=== PATIENT | female | born 1950 | race Caucasian/White ===

== ENCOUNTER 2016-06-15 05:36 | Inpatient (IN) ==
[2016-06-10 11:03] LABS: Basophils # 0.1 10*3/uL (0.0-0.2); Eosinophils # 0.1 10*3/uL (0.0-0.87); Eosinophils % 2.1 % (0.00-10.9); Hematocrit 35.4 VOL% (35.7-47.0); Hemoglobin 11.4 GM/DL (12.0-16.0); Immature Granulocytes % 0.4 %; Immature Granulocytes Absolute 0.02 #; Lymphocytes # 1.1 10*3/uL (1.4-4.0); Lymphocytes % 22.1 % (21.3-54.2); Mean Corpuscular HGB Conc 32.2 GM/DL (32-36); Mean Corpuscular Hemoglobin 28 PG (27-34); Mean Corpuscular Volume 86.1 FL (87-102); Mean Platelet Volume 9.5 FL (9.6-12.0); Monocytes # 0.4 10*3/uL (0.11-0.8); Monocytes % 7.2 % (1.7-12.7); Neutrophils # 3.5 10*3/uL (1.4-7.4); Neutrophils % 67.2 % (38.7-73.9); Platelet Count 285 T/CUMM (130-400); Red Blood Count 4.11 MC/CUMM (3.8-5.5); Red Cell Distribution Width 14.7 % (9.3-17.3); White Blood Count 5.2 T/CUMM (4-12)
[2016-06-10 11:13] LABS: Apearance,Urine CLEAR (Clear); Bacteria,Urine Occasional /HPF (Few); Bilirubin,Urine Negative (Negative); Blood, Urine Moderate mg/dL (Negative); Glucose,Urine (UA) Negative (Negative); Ketones,Urine Negative (Negative); Mucus,Urine Occasional /LPF (Occasional); Nitrite,Urine Negative (Negative); Protein,Urine Negative; RBC,Urine 6 /HPF (0-4); Squamous Epithelial Cell,Urine Occasional /HPF (0-10); Urine Color Yellow (Yellow); Urine Specific Gravity 1.013 (1.001-1.035); Urine Urobilinogen < 2.0 EU/DL (0.2-1.0); WBC,Urine 1 /HPF (0-6)
[2016-06-10 11:15] LABS: PT Patient Result 10.2 SECS
[2016-06-10 11:46] LABS: Albumin 3.6 G/DL (3.4-5.0); Bilirubin,Total 0.7 MG/DL (0.2-1.0); Calcium 8.5 MG/DL (8.5-10.1); Osmolality,Calculated 277.5 MOS/KG (273-304); Potassium 4.8 MMOL/L (3.5-5.1); Total Protein 6.6 G/DL (6.4-8.3)
--- NOTE | 2016-06-10 12:18 | EKG Report ---
Stationary ECG Study [facility] Test Date: 06/10/2016 12:17 PM Pat Name: RIRI ARCOS Department: Room: Gender: F [employer]ist: [birth year] : 1950 Requested by: Adarsh Bishop Order Number: [id number] Reading MD: JONATHON MCKEON Intervals [place] Rate: 68 P: 48 [place]: 151 QRS: 45 QRSD: 93 T: 45 QT: 420 QTc: 437 Interpretive Statements SINUS RHYTHM WITH OCCASIONAL SUPRAVENTRICULAR PREMATURE COMPLEXES LOW QRS VOLTAGE IN CHEST LEADS Electronically Signed On 06-10-16 12:51:25 CDT by JONATHON MCKEON [email or web address]
--- NOTE | 2016-06-10 13:20 | XRay Report ---
XR chest 2V Indication: Preop respiratory evaluation. Chest 2 views: Comparison 03/24/2015. Normal heart size and mediastinal contours are stable. Large hiatal hernia is present. Lungs are generally clear. Pleural spaces are clear. Impression: Large hilar hernia. No acute cardiopulmonary disease. PROCEDURE INTERPRETED AT [facility] DEPARTMENT OF RADIOLOGY Final Report Signed by: Scooter Yanes M.D.
[2016-06-15] MEDS ORDERED: ceFAZolin 1,000 MG VIAL ONE (05:44)
[2016-06-15] MEDS ORDERED: VANCOMYCIN 1,000 MG VIAL ONE (05:44)
[2016-06-15] MEDS ORDERED: ONDANSETRON 4 MG TABLET ONE (05:45)
[2016-06-15] MEDS ORDERED: SODIUM CHLORIDE 0.9% 100 ML IV ONE (05:45)
[2016-06-15] MEDS ORDERED: FAMOTIDINE 20 MG TABLET ONE (05:45)
[2016-06-15] MEDS ORDERED: LORazepam 1 MG TABLET ONE (05:45)
[2016-06-15] MEDS ORDERED: LORazepam 1 MG TABLET PO ONE (06:00)
[2016-06-15] MEDS ORDERED: ONDANSETRON 4 MG TABLET PO ONE (06:00)
[2016-06-15] MEDS ORDERED: FAMOTIDINE 20 MG TABLET PO ONE (06:00)
[2016-06-15] MEDS ORDERED: VANCOMYCIN INJ 1,000 MG in SODIUM CHLORIDE 0.9% 250 ML IV ONE (06:00)
[2016-06-15] MEDS ORDERED: LACTATED RINGERS 1,000 ML IV SCH (06:30)
[2016-06-15] MEDS ORDERED: MORPHINE 10 MG/1 ML VIAL ONE (06:34)
[2016-06-15] MEDS ORDERED: EPINEPHrine 1 MG/ML VIAL ONE (06:34)
[2016-06-15] MEDS ORDERED: BUPIVACAINE 0.5% 50 ML VIAL ONE (06:34)
[2016-06-15] MEDS ORDERED: methylPREDNISolone SOD SUC 125 MG/2 ML VIAL ONE (06:34)
[2016-06-15] MEDS ORDERED: TRANEXAMIC ACID 1,000 MG/10 ML VIAL IV ONE (06:55)
--- NOTE | 2016-06-15 06:56 | History and Physical Update ---
History and Physical Update - History and Physical H&P was reviewed, the patient examined and there: are no changes in the patients condition since last H&P was completed. - Dictation Physical: refer to scanned H&P
[2016-06-15] MEDS ORDERED: LIDOCAINE 2% 5 ML VIAL ONE (07:00)
[2016-06-15] MEDS ORDERED: PHENYLEPHRINE 1 MG/10 ML SYRINGE IV ONE (07:00)
[2016-06-15] MEDS ORDERED: PROPOFOL 200 MG/20 ML VIAL IV ONE (07:00)
[2016-06-15] MEDS ORDERED: ROPIVACAINE 0.5% 30 ML VIAL ONE (07:46)
[2016-06-15] MEDS ORDERED: ONDANSETRON 4 MG/2 ML VIAL IV PRN (08:47)
[2016-06-15] MEDS ORDERED: MAGNESIUM HYDROXIDE SUSP 30 ML UDCUP PO PRN (08:47)
[2016-06-15] MEDS ORDERED: diphenhydrAMINE CAP 25 MG CAPSULE PO PRN (08:47)
[2016-06-15] MEDS ORDERED: NALOXONE 0.4 MG/ML VIAL IV PRN (08:47)
[2016-06-15] MEDS ORDERED: fentaNYL 25 MCG/HR PATCH TRANSDERM SCH (09:00)
[2016-06-15] MEDS ORDERED: HYDROmorphone PCA 30 MG/30 ML SYRINGE IV SCH (09:00)
[2016-06-15] MEDS ORDERED: busPIRone 15 MG TABLET PO SCH (09:00)
--- NOTE | 2016-06-15 10:07 | XRay Report ---
Exam: XR knee 2V RT Date: 06/15/2016 8:49 AM Comparison: 06/15/2016 Indication: Postop Technique:[Portable AP and lateral right knee] Findings: Recent satisfactory right total knee replacement with postoperative findings. Impression: Recent satisfactory right total knee replacement. PROCEDURE INTERPRETED AT [facility] DEPARTMENT OF RADIOLOGY Final Report Signed by: Dr. Mila Sylvester
--- NOTE | 2016-06-15 10:25 | Anesthesia Post-Op ---
Anesthesia Post OP - Post Ansesthetic Evaluation Patient seen in post op: Yes Resp: within normal limits CV: within normal limits Mental: within normal limits Temp: within normal limits [id number]: within normal limits Nausea and Vomiting: within normal limits Pain: within normal limits
[2016-06-15] MEDS ORDERED: ePHEDrine 50 MG/ML AMP ONE (10:36)
[2016-06-15] MEDS ORDERED: MIDAZOLAM 2 MG/2 ML VIAL ONE (10:36)
[2016-06-15] MEDS ORDERED: LACTATED RINGERS 1,000 ML IV ONE (10:36)
[2016-06-15] MEDS ORDERED: ACETAMINOPHEN 1,000 MG/100 ML VIAL IV ONE (10:36)
[2016-06-15] MEDS ORDERED: SODIUM CHLORIDE 0.9% 200 ML IV ONE (10:36)
[2016-06-15] MEDS: GABAPENTIN 400 MG CAPSULE PO SCH ×4 (11:56→20:51)
[2016-06-15] MEDS: ceFAZolin 2,000 MG in PREMIX 1 EACH IV SCH ×2 (12:26→20:51)
[2016-06-15] MEDS: KETOROLAC 30 MG/1 ML VIAL IV SCH ×3 (12:26→22:50)
[2016-06-15] MEDS: LISINOPRIL 10 MG TABLET PO SCH (13:24)
[2016-06-15] MEDS: DOCUSATE SODIUM 100 MG CAPSULE PO SCH ×2 (13:24→20:51)
[2016-06-15] MEDS: LEVOTHYROXINE 75 MCG TABLET PO SCH (13:34)
[2016-06-15] MEDS: POTASSIUM CHLORIDE 10 MEQ TABLET PO SCH (13:34)
[2016-06-15] MEDS: PANTOPRAZOLE 40 MG TABLET PO SCH (13:34)
[2016-06-15] MEDS: LOVASTATIN 20 MG TABLET PO SCH (13:34)
[2016-06-15] MEDS: ACETAMINOPHEN 500 MG TABLET PO SCH ×2 (13:34→19:21)
[2016-06-15] MEDS: SODIUM CHLORIDE 0.9% 1,000 ML IV SCH ×2 (16:56→19:21)
--- NOTE | 2016-06-15 17:06 | Orthopedic Progress Note ---
Assessment and Plan (1) Status post total right knee replacement using cement Status: Acute Assessment and plan: Routine postop antibiotics DVT prophylaxis Begin therapy twice daily tomorrow Plan to discharge with home health and home PT later in the week Current Visit: Yes Orthopedics - Subjective Interval history: Patient is sitting in the bedside chair. She is awake she is comfortable. Her pain is well controlled. On exam her dressings clean and dry she is neurovascularly intact in the right foot. Exam - Constitutional Vitals: Period Temp Pulse Resp BP Sys/Rowell Pulse Ox Last 24 Hr 96.4 F-97.8 F 53-89 16-20 98-135/57-84 94-100 Results - Labs CBC & BMP: 06/10/16 10:56 06/10/16 10:56
[2016-06-15] MEDS: rOPINIRole 0.25 MG TABLET PO SCH (20:51)
[2016-06-16] MEDS: ACETAMINOPHEN 500 MG TABLET PO SCH ×2 (02:10→07:40)
[2016-06-16] MEDS: ENOXAPARIN 40 MG/0.4 ML SYRINGE SUBCUT SCH (03:28)
[2016-06-16] MEDS: KETOROLAC 30 MG/1 ML VIAL IV SCH (04:20)
[2016-06-16] MEDS: SODIUM CHLORIDE 0.9% 1,000 ML IV SCH (05:30)
[2016-06-16 06:59] LABS: Basophils % 0.3 % (0.0-0.8); Hematocrit 28.2 VOL% (35.7-47.0); Hemoglobin 9.1 GM/DL (12.0-16.0); Immature Granulocytes % 0.4 %; Immature Granulocytes Absolute 0.04 #; Lymphocytes # 0.6 10*3/uL (1.4-4.0); Lymphocytes % 5.5 % (21.3-54.2); Mean Corpuscular HGB Conc 32.3 GM/DL (32-36); Mean Corpuscular Hemoglobin 28 PG (27-34); Mean Corpuscular Volume 87.6 FL (87-102); Mean Platelet Volume 10.6 FL (9.6-12.0); Monocytes # 0.7 10*3/uL (0.11-0.8); Monocytes % 6.4 % (1.7-12.7); Neutrophils # 9.9 10*3/uL (1.4-7.4); Neutrophils % 87.4 % (38.7-73.9); Platelet Count 188 T/CUMM (130-400); Red Blood Count 3.22 MC/CUMM (3.8-5.5); Red Cell Distribution Width 14.8 % (9.3-17.3); White Blood Count 11.4 T/CUMM (4-12)
--- NOTE | 2016-06-16 07:11 | Orthopedic Progress Note ---
Assessment and Plan (1) Status post total right knee replacement using cement Status: Acute Assessment and plan: DVT prophylaxis Out of bed with therapy twice daily Plan to discharge with home health and home PT Wednesday or Current Visit: Yes Orthopedics - Subjective Interval history: Patient is comfortable this morning. She states she is ready get up and going with physical therapy. On exam her dressings clean and dry, she is neurovascularly intact. Exam - Constitutional Vitals: Period Temp Pulse Resp BP Sys/Rowell Pulse Ox Last 24 Hr 96.4 F-99.2 F 53-96 16-20 98-156/57-85 93-100 Results - Labs CBC & BMP: 06/16/16 06:08 06/16/16 06:08
[2016-06-16 07:39] LABS: Calcium 8.4 MG/DL (8.5-10.1); Osmolality,Calculated 280.4 MOS/KG (273-304); Potassium 5.5 MMOL/L (3.5-5.1)
[2016-06-16] MEDS: LEVOTHYROXINE 75 MCG TABLET PO SCH (07:40)
[2016-06-16] MEDS ORDERED: ACETAMINOPHEN 325 MG TABLET PO PRN (08:48)
[2016-06-16] MEDS: DOCUSATE SODIUM 100 MG CAPSULE PO SCH ×2 (09:15→20:10)
[2016-06-16] MEDS: LOVASTATIN 20 MG TABLET PO SCH (09:15)
[2016-06-16] MEDS: GABAPENTIN 400 MG CAPSULE PO SCH ×4 (09:15→20:10)
[2016-06-16] MEDS: PANTOPRAZOLE 40 MG TABLET PO SCH (09:15)
[2016-06-16] MEDS: LISINOPRIL 10 MG TABLET PO SCH (09:15)
[2016-06-16] MEDS: POTASSIUM CHLORIDE 10 MEQ TABLET PO SCH (09:16)
--- NOTE | 2016-06-16 10:45 | Pathology Report from [facility] ---
ACCESSION # : [id number] PATIENT NAME : Becki Arcos ORDERING DR : Adarsh Bishop MD CLINICAL HX: RT knee osteoarthritis POST-OP DX: Same SPECIMEN INFO: RT knee bone & tissue GROSS DESCRIPTION: Received in formalin labeled "BECKI ARCOS" are multiple fragments of bone, cartilage and adipose tissue measuring collectively 14.6 x 1.6 5 cm. The articular surface focally degenerative with subchondral eburnation measuring up to 3 cm and marked cartilage lipping noted. Qa Developer sections are submitted in one cassette. DIAGNOSIS FOR BECKI ARCOS: RIGHT KNEE BONE AND TISSUE: Gross and microscopic findings consistent with osteoarthritis. SERVICE DATE: 06/15/2016 REPORT DATE: 06/16/2016 PATHOLOGIST: Loly Galeas III, M.D. MTDD
[2016-06-16] MEDS: CELECOXIB 200 MG CAPSULE PO SCH (13:48)
[2016-06-16] MEDS: rOPINIRole 0.25 MG TABLET PO SCH (20:10)
[2016-06-17] MEDS: ENOXAPARIN 40 MG/0.4 ML SYRINGE SUBCUT SCH (03:11)
[2016-06-17] MEDS: LEVOTHYROXINE 75 MCG TABLET PO SCH (06:10)
[2016-06-17 06:35] LABS: Basophils % 0.4 % (0.0-0.8); Eosinophils # 0.4 10*3/uL (0.0-0.87); Eosinophils % 4.2 % (0.00-10.9); Hematocrit 26.7 VOL% (35.7-47.0); Hemoglobin 8.7 GM/DL (12.0-16.0); Immature Granulocytes % 0.7 %; Immature Granulocytes Absolute 0.07 #; Lymphocytes # 1.1 10*3/uL (1.4-4.0); Lymphocytes % 11.4 % (21.3-54.2); Mean Corpuscular HGB Conc 32.6 GM/DL (32-36); Mean Corpuscular Hemoglobin 28 PG (27-34); Mean Corpuscular Volume 85.9 FL (87-102); Mean Platelet Volume 10.5 FL (9.6-12.0); Monocytes # 0.8 10*3/uL (0.11-0.8); Monocytes % 8.3 % (1.7-12.7); Platelet Count 186 T/CUMM (130-400); Red Blood Count 3.11 MC/CUMM (3.8-5.5); Red Cell Distribution Width 15.2 % (9.3-17.3); White Blood Count 9.4 T/CUMM (4-12)
--- NOTE | 2016-06-17 07:38 | Discharge Summary ---
Hospital Course - Hospital Course Hospital Course: 66-year-old female admitted hospital following total knee arthroplasty. She tolerated the procedure well and was transferred to the floor in stable condition postoperatively. She received routine antibiotics and thromboprophylaxis. She did well with therapy and was subsequently discharged when she was walking safely. At the time of discharge, her wound was clean and dry and she is neurovascularly intact in the right lower extremity. Diagnosis - Discharge Diagnosis (1) Status post total right knee replacement using cement Status: Acute Specialty Discharge - Follow Up or Referrals Follow up with: Adarsh Bishop MD [Physician] - Discharge Plan - Discharge Data Disposition: Home Health Service Condition at Discharge: Stable Discharge Diet: advance to your usual diet Activity: ambulate only with your walker Hygiene: may shower Weight Bearing at Discharge: weight bear as tolerated Driving: not until seen by doctor Contact your physician if you experience:: fever over 101, Difficulty voiding, Redness or swelling, Nausea/Vomiting, Shortness of breath, Bleeding, pain uncontrolled by pain medications Wound / Dressing Care Instructions: daily dressing change. OK to shower. no tub soaks. mary out 06/29/16 - Discharge Medications New Aspirin EC Tab 325 mg PO DAILY #30 tablet Continue Gabapentin 400 mg PO QID Levothyroxine Sodium 75 mcg PO DAILY Lovastatin 20 mg PO DAILY rOPINIRole [Requip] 0.5 mg PO BEDTIME Omeprazole 20 mg PO DAILY Lisinopril 10 mg PO DAILY #30 tablet Potassium Chloride 10 meq PO DAILY fentaNYL [Fentanyl 25 mcg/hr Patch] 1 patch TRANSDERM Q3DAY Changed HYDROcodone/ACETAMIN 10-325 [Rock 10-325] 1 - 2 tablet PO Q4H PRN #60 PRN Reason: Pain - Follow Up or Referral Follow Up: Adarsh Bishop MD [Physician] - (3 weeks ) - Forms/Instructions Instructions: Total Knee Replacement (DC) Additional Discharge Instructions: WBAT, total knee protocol Exam - Constitutional Vitals: Period Temp Pulse Resp BP Sys/Rowell Pulse Ox Last 24 Hr 97.6 F-100 F 86-96 18-20 88-150/50-85 93-100 Discharge Results Procedures and tests throughout hospitalization: Pending Orders 06/18/16 04:00 Comp Blood Count Auto Diff IN AM Labs on day of discharge: Labs from last 24 hours 06/17/16 06/16/16 06:06 06:08 WBC 9.4 RBC 3.11 L Hgb 8.7 L Hct 26.7 L MCV 85.9 L MCH 28 MCHC 32.6 RDW 15.2 Plt Count 186 MPV 10.5 Neut % (Auto) 75.0 H Lymph % (Auto) 11.[address] % (Auto) 8.3 Eos % (Auto) 4.2 Baso % (Auto) 0.4 Neut # (Auto) 7.0 Lymph # (Auto) 1.[address] # (Auto) 0.8 Eos # (Auto) 0.4 Baso # (Auto) 0.0 Immature Gran % 0.7 Nucleated RBC % 0.0 Immature Gran # 0.07 Nucleated RBCs # 0.00 Sodium 140 Potassium 5.5 H Chloride 108 H Carbon Dioxide 24 Anion Gap 13.5 BUN 16 Creatinine 1.00 GFR Calculation 68 BUN/Creatinine Ratio 16.00 Glucose 124 H Calculated Osmolality 280.4 Calcium 8.4 L DS: Provider Date of admission: 06/15/16 05:36 Primary care physician: Mikki Tucker NP Attending physician on admission: Adarsh Bishop MD Consults: 06/15/16 08:47 Consult to Case Mgmt/Social Srvs [CONS] Routine Reason for Case Mgmt/Social Srvs: Rehab Home Health Equipment Consult Comment: Bedside Commode, deliver to rm 320 before D/C; Pt 5ft 6.5in 206lbs. Consult to Occupational Therapy [CONS] Routine Reason for Occupational Therapy: Evaluate and Treat Consult Comment: ADL's Consult to Physical Therapy [CONS] Routine Reason for Physical Therapy: Evaluate and Treat Gait Training Start Therapy: Today Consult Comment: wbat Discharging clinician: Adarsh Bishop MD
[2016-06-17] MEDS: POTASSIUM CHLORIDE 10 MEQ TABLET PO SCH (10:17)
[2016-06-17] MEDS: DOCUSATE SODIUM 100 MG CAPSULE PO SCH (10:18)
[2016-06-17] MEDS: GABAPENTIN 400 MG CAPSULE PO SCH (10:18)
[2016-06-17] MEDS: CELECOXIB 200 MG CAPSULE PO SCH (10:19)
[2016-06-17] MEDS: LOVASTATIN 20 MG TABLET PO SCH (10:20)
[2016-06-17] MEDS: PANTOPRAZOLE 40 MG TABLET PO SCH (10:20)
[2016-06-17] MEDS: LISINOPRIL 10 MG TABLET PO SCH (10:21)
[2016-06-17 16:32] VITALS: BP 115/59
== END 2016-06-17 16:40 | disposition home health service (06) | DRG 470 ==
LOC: N.SDSINP 05:36 → N.3E 10:00
PROVIDERS: ADMIT Orthopaedic Surgery; ATTEND Orthopaedic Surgery

== ENCOUNTER 2019-04-02 15:54 | Observation (INO) ==
[2019-04-02] MEDS ORDERED: METOCLOPRAMIDE 10 MG/2 ML VIAL IV STA (16:41)
[2019-04-02] MEDS ORDERED: PANTOPRAZOLE 40 MG VIAL IV STA (16:41)
[2019-04-02] MEDS ORDERED: ONDANSETRON 4 MG/2 ML VIAL IV STA (16:41)
[2019-04-02] MEDS ORDERED: SODIUM CHLORIDE 0.9% 1,000 ML IV STA (16:41)
[2019-04-02] MEDS ORDERED: DICYCLOMINE 20 MG/2 ML AMP IM ONE (16:41)
[2019-04-02 18:19] LABS: Apearance,Urine Slightly Hazy (Clear); Bilirubin,Urine Negative (Negative); Blood, Urine Large mg/dL (Negative); Glucose,Urine (UA) Negative (Negative); Ketones,Urine Negative (Negative); Mucus,Urine Few /LPF (Occasional); Nitrite,Urine Negative (Negative); Protein,Urine 30 MG/DL; RBC,Urine 10 /HPF (0-4); Squamous Epithelial Cell,Urine Occasional /HPF (0-10); Uric Acid Crystals,Urine Few /HPF (<1); Urine Color Yellow (Yellow); WBC,Urine 2 /HPF (0-6)
[2019-04-02 19:09] LABS: Basophils # 0.1 10*3/uL (0.0-0.2); Basophils % 0.5 % (0.0-0.8); Eosinophils % 0.2 % (0.00-10.9); Hemoglobin 13.6 GM/DL (12.0-16.0); Immature Granulocytes % 0.2 %; Immature Granulocytes Absolute 0.02 #; Lymphocytes # 0.9 10*3/uL (1.4-4.0); Lymphocytes % 7.6 % (21.3-54.2); Mean Corpuscular HGB Conc 31.6 GM/DL (32-36); Mean Platelet Volume 9.9 FL (9.6-12.0); Neutrophils % 86.5 % (38.7-73.9); Platelet Count 329 T/CUMM (130-400); Red Blood Count 5.06 MC/CUMM (3.8-5.5); Red Cell Distribution Width 13.8 % (9.3-17.3); White Blood Count 11.8 T/CUMM (4-12)
[2019-04-02 19:30] LABS: Alanine Aminotransferase 12 U/L (13-56); Albumin 3.9 G/DL (3.4-5.0); Alkaline Phosphatase 81 U/L (45-117); Amylase 37 U/L (25-115); Aspartate Amino Transferase 15 U/L (0-37); Blood Urea Nitrogen 16 MG/DL (7-18); Calcium 9.1 MG/DL (8.5-10.1); Estimated Glom Filtration Rate 86 ML/MIN; Glucose 94 MG/DL (74-106); Osmolality,Calculated 270.1 MOS/KG (273-304); Total Protein 7.3 G/DL (6.4-8.3); Troponin I < 0.015 NG/ML (0.00-0.045)
[2019-04-02] MEDS ORDERED: PROMETHAZINE 25 MG/1 ML VIAL IM STA (20:13)
[2019-04-02] MEDS ORDERED: ACETAMINOPHEN 325 MG TABLET PO PRN (20:41)
[2019-04-02] MEDS ORDERED: ONDANSETRON 4 MG/2 ML VIAL IV PRN (20:41)
[2019-04-02] MEDS ORDERED: PROMETHAZINE 25 MG/1 ML VIAL IM PRN (20:41)
[2019-04-02] MEDS: DICYCLOMINE 10 MG CAPSULE PO SCH (22:50)
[2019-04-02] MEDS: rOPINIRole 1 MG TABLET PO SCH (22:50)
[2019-04-02] MEDS: POTASSIUM CHLORIDE 10 MEQ TABLET PO SCH (22:50)
[2019-04-02] MEDS: SIMVASTATIN 10 MG TABLET PO SCH (22:50)
[2019-04-02] MEDS: FUROSEMIDE 20 MG TABLET PO SCH (22:51)
[2019-04-03 06:26] LABS: Basophils % 0.4 % (0.0-0.8); Eosinophils % 0.3 % (0.00-10.9); Hematocrit 37.2 VOL% (35.7-47.0); Hemoglobin 11.9 GM/DL (12.0-16.0); Immature Granulocytes % 0.2 %; Immature Granulocytes Absolute 0.02 #; Lymphocytes # 0.9 10*3/uL (1.4-4.0); Lymphocytes % 9.8 % (21.3-54.2); Mean Corpuscular Volume 83.2 FL (87-102); Mean Platelet Volume 10.1 FL (9.6-12.0); Monocytes % 7.2 % (1.7-12.7); Neutrophils % 82.1 % (38.7-73.9); Platelet Count 296 T/CUMM (130-400); Red Blood Count 4.47 MC/CUMM (3.8-5.5); Red Cell Distribution Width 13.9 % (9.3-17.3)
[2019-04-03] MEDS: LEVOTHYROXINE 75 MCG TABLET PO SCH (06:36)
[2019-04-03 06:46] LABS: Albumin 3.1 G/DL (3.4-5.0); Bilirubin,Total 0.7 MG/DL (0.2-1.0); Calcium 8.2 MG/DL (8.5-10.1); Osmolality,Calculated 271.1 MOS/KG (273-304); Total Protein 6.2 G/DL (6.4-8.3)
[2019-04-03] MEDS: lisinopriL 10 MG TABLET PO SCH (10:59)
[2019-04-03] MEDS: POTASSIUM CHLORIDE 10 MEQ TABLET PO SCH ×2 (10:59→22:34)
[2019-04-03] MEDS: CALCIUM (CARBONATE)/VITAMIN D 600 MG-400 UNIT TABLET PO SCH (11:00)
[2019-04-03] MEDS: DICYCLOMINE 10 MG CAPSULE PO SCH ×4 (11:00→22:35)
[2019-04-03] MEDS: FERROUS SULFATE 325 MG TABLET PO SCH (11:00)
[2019-04-03] MEDS: FUROSEMIDE 20 MG TABLET PO SCH ×2 (11:00→22:33)
[2019-04-03] MEDS: FLUoxetine 20 MG CAPSULE PO SCH (11:00)
[2019-04-03] MEDS: PANTOPRAZOLE 40 MG TABLET PO SCH (11:00)
[2019-04-03] MEDS: rOPINIRole 1 MG TABLET PO SCH (22:33)
[2019-04-03] MEDS: SIMVASTATIN 10 MG TABLET PO SCH (22:33)
[2019-04-04] MEDS: LEVOTHYROXINE 75 MCG TABLET PO SCH (07:26)
[2019-04-04] MEDS: FUROSEMIDE 20 MG TABLET PO SCH ×2 (08:57→21:07)
[2019-04-04] MEDS: FLUoxetine 20 MG CAPSULE PO SCH (08:57)
[2019-04-04] MEDS: lisinopriL 10 MG TABLET PO SCH (08:57)
[2019-04-04] MEDS: DICYCLOMINE 10 MG CAPSULE PO SCH ×4 (08:57→21:07)
[2019-04-04] MEDS: CALCIUM (CARBONATE)/VITAMIN D 600 MG-400 UNIT TABLET PO SCH (08:57)
[2019-04-04] MEDS: PANTOPRAZOLE 40 MG TABLET PO SCH (08:58)
[2019-04-04] MEDS: POTASSIUM CHLORIDE 10 MEQ TABLET PO SCH ×2 (08:58→21:07)
[2019-04-04] MEDS: FERROUS SULFATE 325 MG TABLET PO SCH (08:58)
[2019-04-04] MEDS: SIMVASTATIN 10 MG TABLET PO SCH (21:07)
[2019-04-04] MEDS: rOPINIRole 1 MG TABLET PO SCH (21:07)
[2019-04-05] MEDS: LEVOTHYROXINE 75 MCG TABLET PO SCH (07:15)
[2019-04-05] MEDS: POTASSIUM CHLORIDE 10 MEQ TABLET PO SCH (08:52)
[2019-04-05] MEDS: FUROSEMIDE 20 MG TABLET PO SCH (08:53)
[2019-04-05] MEDS: FERROUS SULFATE 325 MG TABLET PO SCH (08:53)
[2019-04-05] MEDS: DICYCLOMINE 10 MG CAPSULE PO SCH (08:53)
[2019-04-05] MEDS: FLUoxetine 20 MG CAPSULE PO SCH (08:53)
[2019-04-05] MEDS: PANTOPRAZOLE 40 MG TABLET PO SCH (08:53)
[2019-04-05] MEDS: CALCIUM (CARBONATE)/VITAMIN D 600 MG-400 UNIT TABLET PO SCH (08:53)
[2019-04-05] MEDS: lisinopriL 10 MG TABLET PO SCH (08:53)
[2019-04-05 12:01] VITALS: BP 116/71
== END 2019-04-05 13:25 | disposition home or self-care (01) ==
LOC: EDBD → EDUNIT# → N.ED 15:54 → N.EDINP 15:54 → N.3E 21:17 → N.2W 04-03 12:32
PROVIDERS: ADMIT Internal Medicine; ATTEND Internal Medicine

== ENCOUNTER 2021-12-19 10:38 | Observation (INO) ==
[2021-12-19 11:44] LABS: Basophils % 0.4 % (0.0-0.8); Eosinophils % 0.4 % (0.00-10.9); Hemoglobin 10.9 GM/DL (12.0-16.0); Immature Granulocytes % 0.8 %; Immature Granulocytes Absolute 0.04 #; Lymphocytes # 0.8 10*3/uL (1.4-4.0); Lymphocytes % 17.3 % (21.3-54.2); Mean Corpuscular Volume 84.2 FL (87-102); Mean Platelet Volume 9.3 FL (9.6-12.0); Monocytes # 0.4 10*3/uL (0.11-0.8); Monocytes % 7.5 % (1.7-12.7); Neutrophils % 73.6 % (38.7-73.9); Platelet Count 370 T/CUMM (130-400); Red Blood Count 3.92 MC/CUMM (3.8-5.5); Red Cell Distribution Width 15.5 % (9.3-17.3); White Blood Count 4.8 T/CUMM (4-12)
[2021-12-19 11:58] LABS: Bilirubin,Total 0.7 MG/DL (0.20-1.00); Calcium 9.5 MG/DL (8.5-10.1); Osmolality,Calculated 267.2 MOS/KG (273-304); Potassium 4.1 MMOL/L (3.5-5.1); Total Protein 6.8 G/DL (6.4-8.2)
[2021-12-19] MEDS ORDERED: cefTRIAXone 1,000 MG in SODIUM CHLORIDE 0.9% 100 ML IV STA (12:55)
[2021-12-19] MEDS ORDERED: ACETAMINOPHEN 325 MG TABLET PO PRN ×2 (13:34→13:46)
[2021-12-19] MEDS ORDERED: ONDANSETRON 4 MG/2 ML VIAL IV PRN ×2 (13:34→13:46)
[2021-12-19] MEDS ORDERED: MECLIZINE 25 MG TABLET PO PRN (13:37)
[2021-12-19] MEDS ORDERED: ENOXAPARIN 40 MG/0.4 ML SYRINGE SUBCUT SCH (14:00)
[2021-12-19] MEDS ORDERED: LACTATED RINGERS 1,000 ML IV SCH (14:00)
[2021-12-19] MEDS ORDERED: hydrALAZINE 20 MG/1 ML VIAL IV PRN (14:49)
[2021-12-19] MEDS: SODIUM CHLORIDE 0.9% 1,000 ML IV SCH (15:19)
[2021-12-19] MEDS: DICYCLOMINE 10 MG CAPSULE PO SCH ×2 (17:27→20:40)
[2021-12-19] MEDS: ALBUTEROL/IPRATROPIUM 3 ML NEB RESP TX SCH (19:24)
[2021-12-19] MEDS: DOXYCYCLINE HYCLATE 100 MG CAPSULE PO SCH (20:40)
[2021-12-19] MEDS: APIXABAN 5 MG TABLET PO SCH (20:40)
[2021-12-20] MEDS: ALBUTEROL/IPRATROPIUM 3 ML NEB RESP TX SCH ×2 (02:20→07:01)
[2021-12-20 05:46] LABS: Basophils % 0.5 % (0.0-0.8); Eosinophils % 0.5 % (0.00-10.9); Hematocrit 27.5 VOL% (35.7-47.0); Hemoglobin 8.9 GM/DL (12.0-16.0); Immature Granulocytes Absolute 0.04 #; Lymphocytes # 0.6 10*3/uL (1.4-4.0); Lymphocytes % 16.8 % (21.3-54.2); Mean Corpuscular HGB Conc 32.4 GM/DL (32-36); Mean Corpuscular Volume 85.9 FL (87-102); Mean Platelet Volume 9.4 FL (9.6-12.0); Monocytes # 0.3 10*3/uL (0.11-0.8); Monocytes % 7.9 % (1.7-12.7); Neutrophils % 73.3 % (38.7-73.9); Platelet Count 253 T/CUMM (130-400); Red Cell Distribution Width 15.4 % (9.3-17.3); White Blood Count 3.8 T/CUMM (4-12)
[2021-12-20 06:17] LABS: Calcium 8.6 MG/DL (8.5-10.1); Osmolality,Calculated 271.8 MOS/KG (273-304); Potassium 3.9 MMOL/L (3.5-5.1); Thyroid Stimulating Hormone 1.17 uIU/ml (0.358-3.74)
[2021-12-20] MEDS ORDERED: LEVOTHYROXINE 75 MCG TABLET PO SCH (06:30)
[2021-12-20] MEDS: APIXABAN 5 MG TABLET PO SCH (08:38)
[2021-12-20] MEDS: DOXYCYCLINE HYCLATE 100 MG CAPSULE PO SCH (08:39)
[2021-12-20] MEDS: DICYCLOMINE 10 MG CAPSULE PO SCH ×2 (08:39→13:05)
[2021-12-20] MEDS ORDERED: FAMOTIDINE 20 MG TABLET PO SCH (09:00)
[2021-12-20] MEDS ORDERED: cefTRIAXone 2,000 MG in SODIUM CHLORIDE 0.9% 100 ML IV SCH (09:00)
[2021-12-20] MEDS ORDERED: CYPROHEPTADINE 4 MG TABLET PO SCH (09:00)
[2021-12-20] MEDS ORDERED: PANTOPRAZOLE 40 MG TABLET PO SCH ×2 (09:00)
[2021-12-20 11:49] VITALS: BP 102/60
[2021-12-20] MEDS: SODIUM CHLORIDE 0.9% 1,000 ML IV SCH (12:16)
== END 2021-12-20 13:36 | disposition home or self-care (01) ==
LOC: N.ED 10:38 → N.EDINP 10:38 → SUATTDRO 13:46 → N.5E 16:33
PROVIDERS: ADMIT Emergency Medicine; ATTEND Internal Medicine

== ENCOUNTER 2021-12-22 12:34 | Observation (INO) ==
[2021-12-22] MEDS ORDERED: SODIUM CHLORIDE 0.9% 1,000 ML IV STA ×2 (13:28→16:00)
[2021-12-22] MEDS ORDERED: ONDANSETRON 4 MG/2 ML VIAL IV STA (13:28)
[2021-12-22 15:20] LABS: Bilirubin,Total 0.6 MG/DL (0.20-1.00); Calcium 10.1 MG/DL (8.5-10.1); Osmolality,Calculated 263.4 MOS/KG (273-304); Prealbumin 11.1 MG/DL (20-40); Total Protein 7.4 G/DL (6.4-8.2)
[2021-12-22 15:53] LABS: Basophils % 0.7 % (0.0-0.8); Eosinophils % 0.4 % (0.00-10.9); Hematocrit 35.6 VOL% (35.7-47.0); Hemoglobin 11.5 GM/DL (12.0-16.0); Immature Granulocytes % 0.4 %; Immature Granulocytes Absolute 0.02 #; Lymphocytes # 0.9 10*3/uL (1.4-4.0); Lymphocytes % 16.8 % (21.3-54.2); Mean Corpuscular HGB Conc 32.3 GM/DL (32-36); Mean Corpuscular Volume 85.6 FL (87-102); Mean Platelet Volume 9.1 FL (9.6-12.0); Monocytes # 0.2 10*3/uL (0.11-0.8); Monocytes % 4.3 % (1.7-12.7); Neutrophils % 77.4 % (38.7-73.9); Platelet Count 343 T/CUMM (130-400); Red Blood Count 4.16 MC/CUMM (3.8-5.5); Red Cell Distribution Width 15.8 % (9.3-17.3); White Blood Count 5.4 T/CUMM (4-12)
[2021-12-22] MEDS ORDERED: ACETAMINOPHEN 325 MG TABLET PO PRN (16:26)
[2021-12-22] MEDS ORDERED: KETOROLAC 30 MG/1 ML VIAL IV PRN (16:26)
[2021-12-22] MEDS: LACTATED RINGERS 1,000 ML IV SCH (17:35)
[2021-12-22 18:09] LABS: Hyaline Casts,Urine 7 /LPF (0-3); Mucus,Urine Occasional /LPF (Occasional); RBC,Urine 2 /HPF (0-4); Squamous Epithelial Cell,Urine Occasional /HPF (0-10)
[2021-12-22 18:10] LABS: Bilirubin,Urine Moderate mg/dL (Negative); Blood, Urine Trace mg/dL (Negative); Glucose,Urine (UA) Negative (Negative); Ketones,Urine >=160 mg/dL (Negative); Nitrite,Urine Negative (Negative); Protein,Urine Negative (Negative); Urine Appearance Clear (Clear); Urine Color Yellow (Yellow); Urine Specific Gravity >= 1.030 (1.001-1.035); Urine Urobilinogen 0.2 eU/dL (<2.0); Urine pH 5.5 (4.5-8.0)
[2021-12-23] MEDS: LACTATED RINGERS 1,000 ML IV SCH ×4 (01:35→23:36)
[2021-12-23 05:57] LABS: Basophils % 0.8 % (0.0-0.8); Eosinophils % 1.1 % (0.00-10.9); Hematocrit 28.6 VOL% (35.7-47.0); Hemoglobin 9.5 GM/DL (12.0-16.0); Immature Granulocytes % 0.5 %; Immature Granulocytes Absolute 0.02 #; Lymphocytes # 0.8 10*3/uL (1.4-4.0); Lymphocytes % 22.2 % (21.3-54.2); Mean Corpuscular HGB Conc 33.2 GM/DL (32-36); Mean Corpuscular Volume 84.1 FL (87-102); Mean Platelet Volume 9.3 FL (9.6-12.0); Monocytes # 0.3 10*3/uL (0.11-0.8); Monocytes % 6.8 % (1.7-12.7); Neutrophils % 68.6 % (38.7-73.9); Platelet Count 272 T/CUMM (130-400); Red Cell Distribution Width 15.6 % (9.3-17.3); White Blood Count 3.7 T/CUMM (4-12)
[2021-12-23 06:25] LABS: Calcium 8.7 MG/DL (8.5-10.1); Potassium 4.1 MMOL/L (3.5-5.1)
[2021-12-23] MEDS ORDERED: LACTATED RINGERS 1,000 ML IV SCH (08:00)
[2021-12-23] MEDS: ONDANSETRON 4 MG/2 ML VIAL IV PRN ×2 (08:43→15:35)
[2021-12-23] MEDS: PANTOPRAZOLE 40 MG VIAL IV SCH (08:43)
[2021-12-23] MEDS ORDERED: LIDOCAINE 2% 5 ML VIAL ONE (09:39)
[2021-12-23] MEDS ORDERED: ETOMIDATE 20 MG/10 ML VIAL IV ONE (09:39)
[2021-12-23] MEDS ORDERED: propofoL 200 MG/20 ML VIAL IV ONE (09:39)
[2021-12-23] MEDS ORDERED: ZINC OXIDE PASTE 113 GM TUBE TOP PRN (13:51)
[2021-12-23] MEDS: METOCLOPRAMIDE 10 MG/2 ML VIAL IV SCH ×2 (17:59→23:36)
[2021-12-24] MEDS: METOCLOPRAMIDE 10 MG/2 ML VIAL IV SCH (05:30)
[2021-12-24] MEDS: LACTATED RINGERS 1,000 ML IV SCH ×2 (05:30→08:27)
[2021-12-24] MEDS: PANTOPRAZOLE 40 MG VIAL IV SCH (08:27)
[2021-12-24 10:59] VITALS: BP 116/61
== END 2021-12-24 12:18 | disposition home or self-care (01) ==
LOC: EDBD → EDUNIT# → N.ED 12:34 → N.EDINP 16:26 → INTOOBSV 16:26 → N.3E 17:58
PROVIDERS: ADMIT Surgery; ATTEND Surgery